=== PATIENT | female | born 1995 | race American Indian/Alaskan Native ===

== ENCOUNTER 2020-06-15 10:52 | Day surgery (SDC) | payer OTHER ==
[~2020-06-15 10:52] MED LIST: SODIUM CHLORIDE 0.9% 1000 ML 1,000 ML IV SCH
[2020-06-15] MEDS ORDERED: propofoL 200 MG/20 ML VIAL IV ONE (11:36)
--- NOTE | 2020-06-15 11:38 | Anesthesia Consultation ---
Anesthesia Consult and Med Hx Date of service: 06/15/20 - Airway Anesthetic Teeth Evaluation: Good ROM Head & Neck: Adequate Mental/Hyoid Distance: Adequate Mallampati Class: Class I Intubation Access Assessment: Good - Pulmonary Exam CTA: Yes - Cardiac Exam Cardiac Exam: RRR - Pre-Operative Health Status ASA Pre-Surgery Classification: ASA2 Proposed Anesthetic Plan: MAC - Pulmonary Hx Smoking: No Hx Respiratory Symptoms: No - Cardiovascular System Hx Cardia Arrhythmia: Yes (WPW syndrome) Hx Pacemaker: No Hx Internal Defibrillator: No - Central Nervous System CVA: No - Endocrine Hx Renal Disease: No Hx Liver Disease: No Hx Insulin Dependent Diabetes: No Hx Non-Insulin Dependent Diabetes: No Hx Thyroid Disease: No - Other Systems Hx Obesity: No - Additional Comments Anesthesia Medical History Comments: No hx anesthetic complications. Colonoscopy for abdominal pain.
--- NOTE | 2020-06-15 11:39 | Anesthesia Day of Surgery ---
Anesthesia Day of Surgery - Day of Surgery Patient Examined: Yes Patient H&P Reviewed: Yes Patient is NPO: Yes
--- NOTE | 2020-06-15 12:12 | Procedure Note ---
Date of procedure: 06/15/20 Pre-op diagnosis: Abdominal Pain/ Colitis Post-op diagnosis: other (R/O Microscopic colitis/ R/O Ileitis/Minor,Internal Hemorrhoids/ No colon Polyps or diverticular Disease noted) Procedure: Colonoscopy with Biopsy Anesthesia: AVERY Surgeon: VERONA ROBERTS Estimated blood loss: minimal Pathology: list Specimen disposition: to lab Condition: stable Disposition: same day (Treat with prn Bentyl, Probiotic. Avoid aspirin and NSAID for 4 days; otherwise resume home medication. Follow up in 1 to 2 weeks ([phone]).)
--- NOTE | 2020-06-15 13:15 | Post Anesthesia Evaluation ---
- Post Anesthesia Evaluation Patient Participated: Yes Airway Patent: Yes Stable Respiratory Function: Yes Nausea/Vomiting: No Temp > 96.8F: Yes Pain Manageable: Yes Adequeate Hydration: Yes Anesthesia Complications: No
--- NOTE | 2020-06-15 13:21 | Operative Report ---
PROCEDURE: Colonoscopy with biopsy. INDICATIONS: This is a 24-year-old otherwise healthy female who has been complaining of abdominal pain and discomfort. Colonoscopy was done to assess for any associated colitis. DESCRIPTION OF PROCEDURE: The procedure was done after getting informed consent with MAC anesthesia. Initial rectal exam was unremarkable. Instrument was passed through the rectum onto the cecum, which was identified with the ileocecal valve and the appendiceal orifice. Cecum was also examined on the retroverted view. No additional pathology was noted. The terminal ileum was intubated, showed normal mucosa. Biopsy was done to rule out for possible ileitis. Cecum, ascending colon, transverse colon, descending colon, and sigmoid likewise showed normal mucosa. There was no evidence of any polyps, colitis or diverticular disease. Endoscopically, random biopsies were done to rule out for possible microscopic colitis and the rectum showed some minor internal hemorrhoid on the retroverted view. There was minimal bleeding from the biopsy sites. No complications associated with the procedure. ASSESSMENT: Abdominal pain, rule out microscopic colitis, rule out ileitis, minor internal hemorrhoids. No colon polyps or diverticular disease noted. PLAN: To treat the patient with a p.r.n. dose of Bentyl, encourage the patient to take probiotics. Avoid aspirin and aspirin-related products for the next 4-5 days. Otherwise, resume home medication. Also, encouraged the patient to take [id number] probiotics and follow up in the office in 1-2 weeks' time. The procedure was done in the GI lab with assistance of the GI lab team, which included KRISTOFER, Myra Rivera; tech, the junior technical writer and with assistance of anesthesia. JOB# [id number] JUSTINE/GUNJAN
[2020-06-15 13:40] VITALS: BP 110/65
== END 2020-06-15 14:00 | disposition home or self-care (01) ==
LOC: GIO 10:52
DX: R10.9 Unspecified abdominal pain (principal); R14.0 Abdominal distension (gaseous); K64.8 Other hemorrhoids; K63.89 Other specified diseases of intestine; I42.9 Cardiomyopathy, unspecified; Z79.899 Other long term (current) drug therapy
CPT/HCPCS: 45380; 81025; 88305; J2704; J7030